=== PATIENT | female | born 2000 | race Caucasian/White ===

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

== ENCOUNTER 2023-11-20 11:39 | Emergency (ER) | payer MEDICAID, OTHER ==
[~2023-11-20] VITALS: Ht 152.4 cm; Wt 78.2 kg
[~2023-11-20 11:39] MED LIST changes: -AZIT500T2 PO; +AZIT500T5 PO; -IBUP200T45 PO; +IBUP200T46 PO
[2023-11-20] MEDS ORDERED: ONDANSETRON 4MG ORAL DISINTEGRATING TAB PO ONE (13:30)
[2023-11-20] MEDS ORDERED: ONDA4TAB6 PO (13:31)
[2023-11-20 13:43] VITALS: BP 130/82; TEMP 98.8; O2SAT 96
== END 2023-11-20 13:50 | disposition home or self-care (01) ==
LOC: M ED 11:39
DX: U07.1 COVID-19 (principal); F90.9 Attention-deficit hyperactivity disorder, unspecified type; Z88.0 Allergy status to penicillin

== ENCOUNTER 2024-02-27 14:08 | Emergency (ER) | payer MEDICAID, OTHER ==
[~2024-02-27] VITALS: Ht 152.4 cm; Wt 86.2 kg
[~2024-02-27 14:08] MED LIST changes: +ONDA4TAB6 PO
[2024-02-27] MEDS: ALBUTEROL SULFATE 2.5MG/0.5ML INH NEB SOLN INH ONE (14:26)
[2024-02-27] MEDS: IPRATROPIUM 0.5MG/ALBUTEROL 2.5MG INH SOL UD 3ML (DUONEB) NEB ONE (14:26)
[2024-02-27] MEDS: methylPREDNISolone 125MG 2ML VIAL IV ONE (14:32)
[2024-02-27] MEDS ORDERED: ALBU6.7H6 INH (15:11)
[2024-02-27] MEDS ORDERED: PRED20TA PO (15:11)
[2024-02-27 15:26] VITALS: BP 124/71; TEMP 98.1; O2SAT 99
== END 2024-02-27 15:30 | disposition home or self-care (01) ==
LOC: M ED 14:08
DX: J45.901 Unspecified asthma with (acute) exacerbation (principal); F90.9 Attention-deficit hyperactivity disorder, unspecified type; Z88.0 Allergy status to penicillin; Z79.51 Long term (current) use of inhaled steroids; Z79.52 Long term (current) use of systemic steroids; Z79.899 Other long term (current) drug therapy
CPT/HCPCS: 93041; 94640; 94760; 96374; 99284; J2930

== ENCOUNTER → 2025-05-22 | Outpatient (REF) | payer OTHER, MEDICAID ==
[~2025-05-22] MED LIST changes: +ALBU6.7H6 INH; +ONDA-282 PO; -ONDA4TAB6 PO; +PRED20TA PO; -PRED50TA PO; +PRED50TA57 PO
[2025-05-22 13:14] LABS: THYROID STIMULATING HORMONE 1.095 uIU/ML (0.55-4.78)
[2025-05-22 13:15] LABS: ALBUMIN 4.3 G/DL (3.2-5.2); ALKALINE PHOSPHATASE 83 U/L (35-104); ALT/SGPT 25 U/L (7.0-40); AST/SGOT 26 U/L (<34); BILIRUBIN,TOTAL 0.4 MG/DL (0.3-1.2); BLOOD UREA NITROGEN 15 MG/DL (9-23); CALCIUM LEVEL 10.1 MG/DL (8.5-10.1); CARBON DIOXIDE LEVEL 25 MMOL/L (20-31); CHLORIDE LEVEL 106 MMOL/L (98-107); CHOLESTEROL LEVEL 149 MG/DL (<200); CHOLESTEROL RISK RATIO 3.65 (<5); GLOMERULAR FILTRATION RATE > 90.0 (>60); GLUCOSE, FASTING 78 MG/DL (60-100); HDL CHOLESTEROL 40.8 MG/DL (>40); LDL CHOLESTEROL 93.8 MG/DL (<100); NON-HDL-C 108.2 MG/DL; POTASSIUM SERUM 4.8 MMOL/L (3.5-5.1); SODIUM LEVEL 141 MMOL/L (136-145); TOTAL PROTEIN 7.6 G/DL (5.7-8.2); TRIGLYCERIDES LEVEL 72 MG/DL (<150)
[2025-05-22 13:37] LABS: HEMOGLOBIN A1c 5.1 % (4.0-6.0)
== END ==
LOC: M LAB REF 12:17
PROVIDERS: ATTEND Student in an Organized Health Care Education/Training Program
DX: E66.9 Obesity, unspecified (principal); Z68.35 Body mass index [BMI] 35.0-35.9, adult

== ENCOUNTER 2025-11-10 11:28 | Emergency (ER) | payer MEDICAID, OTHER ==
[~2025-11-10] VITALS: Ht 152.4 cm; Wt 86.2 kg
[2025-11-10] MEDS: ACETAMINOPHEN 325 MG TAB PO ONE (14:24)
[2025-11-10] MEDS: IBUPROFEN 600 MG TAB PO ONE (14:24)
[2025-11-10 14:27] VITALS: BP 119/72; TEMP 99.3; O2SAT 97
== END 2025-11-10 14:59 | disposition home or self-care (01) ==
LOC: M ED 11:28
DX: M25.562 Pain in left knee (principal); J45.909 Unspecified asthma, uncomplicated; Z88.0 Allergy status to penicillin; Z88.1 Allergy status to other antibiotic agents; Z79.51 Long term (current) use of inhaled steroids; Z79.52 Long term (current) use of systemic steroids; Z79.899 Other long term (current) drug therapy